=== PATIENT | male | born 1985 | race African-American/Black ===

== ENCOUNTER 2016-10-13 21:09 | Emergency (ER) | payer MEDICAID ==
[~2016-10-13] VITALS: Ht 185.4 cm; Wt 72.6 kg
[2016-10-13] MEDS ORDERED: LORAZEPAM 1 MG TABLET ONE (22:24)
[2016-10-13] MEDS: LORAZEPAM 1 MG TABLET PO ONE (22:33)
[2016-10-13 23:57] VITALS: BP 148/78
== END 2016-10-13 23:58 | disposition home or self-care (01) ==
LOC: ER 21:11
DX: F41.9 Anxiety disorder, unspecified (principal); F19.90 Other psychoactive substance use, unspecified, uncomplicated; R00.0 Tachycardia, unspecified; K59.00 Constipation, unspecified; F17.210 Nicotine dependence, cigarettes, uncomplicated
CPT/HCPCS: 80305; A4606; Z7610

== ENCOUNTER 2019-07-27 16:24 | Emergency (ER) | payer SELFPAY ==
--- NOTE | 2019-07-27 16:36 | NUR ---
PT REFUSED TO BE TRIAGE.
== END 2019-07-27 16:39 | disposition left against medical advice (07) ==
LOC: ER 16:25
DX: Z75.3 Unavailability and inaccessibility of health-care facilities (principal)